=== PATIENT | male | born 1955 | race Caucasian/White ===

== ENCOUNTER 2022-09-30 08:02 | Outpatient (CLI) | payer MEDICARE, OTHER, SELFPAY ==
--- NOTE | ~2022-09-30 | CT_ITS ---
EXAMINATION: CT abdomen pelvis wo con DATE: 09/30/2022 08:30 INDICATION: Lower abdominal pain TECHNIQUE: Computed tomography (CT) of the abdomen and pelvis was performed without intravenous contr ast. The dose-length product (DLP) was 1465.83 mGy-cm. Automated exposure control and iterative recon struction technique were employed. COMPARISON: None FINDINGS: The lung bases are clear. The heart size is normal. The liver is diffusely low in attenuati on when compared with the spleen, consistent with hepatic steatosis. The spleen, pancreas, gallbladde r, and adrenal glands are normal. There is a 3.1 cm cyst of the right kidney. There is a 5 mm nonobst ructing stone of the left kidney lower pole. No stones are identified in the ureters or bladder. No h ydronephrosis or hydroureter. There is calcified atherosclerosis of the aorta and many of the other a rteries. No pathologically enlarged abdominal or pelvic lymph nodes are identified. There is no free intraperitoneal gas or evidence of bowel obstruction. The appendix is normal. There are fat-containin g bilateral inguinal and umbilical hernias. There is mild lumbar spondylosis. IMPRESSION: 1. Fat-containing bilateral inguinal and umbilical hernias. 2. Nonobstructing stone of the left kidney. 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
== END 2022-09-30 08:03 | disposition home or self-care (01) ==
LOC: CHSIMG 08:09
PROVIDERS: PCP Physician Assistant; Visit Provider Physician Assistant
DX: R10.31 Right lower quadrant pain (principal)
CPT/HCPCS: 74176

== ENCOUNTER 2023-01-24 08:44 | Outpatient (CLI) | payer MEDICARE, OTHER, SELFPAY ==
--- NOTE | 2023-01-24 10:00 | EST_ITS ---
Patient Info Name: Holland Rios Age: 67 years : 1955 Gender: Male Ht: 68 in Wt: 267 lbs BSA: 2.47 m2 HR: 96 bpm BP: 149 / 88 mmHg Heart Rhythm: Sinus Rhythm Technical Quality: Good Exam Date: 01/24/2023 10:13 AM Exam Location: [facility] Patient Status: Outpatient Admit Date: 01/24/2023 Staff Ordering Physician: Phyllis, Bin ALVAREZ Attending Provider: Nguyen MACHADO CEP Exercise Technologist: Dora Quintero CRT Exercise Physician: Kesha Machado CEP Exam Type: CA stress neeraj w NM Study Info Indications MENDEZ - A nuclear stress test was performed. History/Risk Factors Hypertension: Yes Diabetes Mellitus: Yes History/Risk Factors Diabetes, Hypertension. Summary 1. 1. Negative lexiscan stress test for ischemic ST changes by ECG criteria. 2. 2. Baseline hypertension. 3. 3. Nuclear scan to follow and will be reported separately. Please correlate with it. Protocol: LEXISCAN Stress ECG Details Stage: REST Duration (min): 1 min : 9 sec HR (bpm): 73 SBP (mmHg): 149 DBP (mmHg): 88 Stage: REST Duration (min): 6 min : 44 sec HR (bpm): 74 SBP (mmHg): 149 DBP (mmHg): 88 Stage: STAGE 1 Duration (min): 0 min : 20 sec HR (bpm): 80 SBP (mmHg): 149 DBP (mmHg): 88 Stage: RECOVERY Duration (min): 0 min : 39 sec HR (bpm): 90 SBP (mmHg): 149 DBP (mmHg): 88 Stage: RECOVERY Duration (min): 1 min : 39 sec HR (bpm): 86 SBP (mmHg): 149 DBP (mmHg): 88 Stage: RECOVERY Duration (min): 2 min : 39 sec HR (bpm): 83 SBP (mmHg): 189 DBP (mmHg): 86 Stage: RECOVERY Duration (min): 3 min : 39 sec HR (bpm): 80 SBP (mmHg): 174 DBP (mmHg): 81 Stage: RECOVERY Duration (min): 4 min : 39 sec HR (bpm): 80 SBP (mmHg): 167 DBP (mmHg): 83 Stage: RECOVERY Duration (min): 5 min : 39 sec HR (bpm): 82 SBP (mmHg): 167 DBP (mmHg): 83 Stage: RECOVERY Duration (min): 6 min : 4 sec HR (bpm): 80 SBP (mmHg): 162 DBP (mmHg): 84 Rest HR: 74 bpm Peak HR: 90 bpm Rest Sys BP: 149 mmHg Peak Sys BP: 189 mmHg Max Pred HR: 151 bpm % Max Pred HR: 60 % Target HR: 128 bpm Max RPP: 17,010 bpm*mmHg Termination Reason: Completed Protocol Cardiac Symptoms: Dyspnea Total Time: 0 min : 20 sec Rest Hernandez BP: 88 mmHg Peak Hernandez BP: 86 mmHg Total Dose: 0.4 mg Resting ECG Normal sinus rhythm. Stress ECG No ST changes. Arrhythmias Isolated PVCs. Report Signatures
--- NOTE | 2023-01-24 17:04 | WPDCARIOSTRE ---
Nuclear Stress Test INDICATIONS Indications: MENDEZ PROCEDURE Procedure Performed: Myocardial Perf Spect-Multi Procedure: Patient underwent a lexiscan stress test and was immediately injected with 33.9 mCi of cardiolyte. Multiple tomographic images were obtained. These are of good quality. There is evidence of large area, severe inferior perfusion defect with stress imaging. A separate resting images were obtained after patient was injected with 10.6 mCi of cardiolyte. Multiple tomographic images were obtained. These are of good quality. There is evidence of large area, mild-moderate inferior perfusion defect with rest imaging. CONCLUSION Conclusion: 1. Abnormal myocardial perfusion imaging demonstrating more severe perfusion defect with stress imaging suggesting inferior reversible ischemia. 2. Left ventriculogram demonstrates normal measured ejection fraction of 66% with no wall motion abnormalities. 3. TID 0.99 is normal.
== END 2023-01-24 08:45 | disposition home or self-care (01) ==
LOC: CHSIMG 08:47
PROVIDERS: PCP Physician Assistant; Visit Provider Physician Assistant
DX: R06.09 Other forms of dyspnea (principal); R94.39 Abnormal result of other cardiovascular function study
CPT/HCPCS: 78452; 93017; A9502; J2785

== ENCOUNTER 2023-02-07 08:59 | Outpatient (CLI) | payer MEDICARE, OTHER, SELFPAY ==
--- NOTE | 2023-02-07 09:18 | ECG_ITS ---
Measurements Intervals [place] Rate: 75 P: 41 NE: 179 QRS: 22 QRSD: 98 T: 18 QT: 430 QTc: 481 Interpretive Statements SINUS RHYTHM WITH OCCASIONAL VENTRICULAR PREMATURE COMPLEXES WITH FREQUENT SUPRAVENTRICULAR PREMATURE COMPLEXES IN A BIGEMINAL LOW QRS VOLTAGE IN PRECORDIAL LEADS [QRS DEFLECTION < 1.0 mV IN CHEST LEADS] NONSPECIFIC ST & T-WAVE ABNORMALITY ABNORMAL ECG NO PREVIOUS ECG AVAILABLE FOR COMPARISON Electronically Signed On 02-07-2023 12:00:36 CDT by Irwin Coleman M.D.
== END 2023-02-07 09:00 | disposition home or self-care (01) ==
LOC: CHSCARD 09:06
PROVIDERS: PCP Physician Assistant; Visit Provider Physician Assistant
DX: I20.8 Other forms of angina pectoris (principal); R94.31 Abnormal electrocardiogram [ECG] [EKG]
CPT/HCPCS: 93005

== ENCOUNTER 2023-04-18 10:50 | Outpatient (CLI) | payer MEDICARE, OTHER, SELFPAY ==
--- NOTE | 2023-04-18 10:55 | ECHO_ITS ---
Patient Info Name: Holland Rios Age: 67 years : 1955 Gender: Male Ht: 69 in Wt: 276 lbs BSA: 2.53 m2 HR: 70 bpm BP: 156 / 113 mmHg Heart Rhythm: Sinus Rhythm Technical Quality: Poor Exam Date: 04/18/2023 11:21 AM Exam Location: [facility] Patient Status: Outpatient Admit Date: 04/18/2023 Staff Ordering Physician: Dereje Beck DO Ship Boat Or Barge Mate: Vinicio Moreno RDCS Attending Provider: Dereje Beck DO Referring Physician: Kiran MCLEOD; Exam Type: CA echo dop color flow w con Study Info Indications - other forms of dyspnea Complete two-dimensional, color flow and Doppler transthoracic echocardiogram is performed with contrast to opacify the left ventricle and to improve the deliniation of the left ventricle endocardial borders. Reason for Poor Study: poor echocardiographic windows History/Risk Factors Hypertension: Yes Diabetes Mellitus: Yes Summary 1. Technically suboptimal study due to poor sonographic images. 2. Left ventricular chamber dimension is normal. 3. Left ventricular systolic function is normal, estimated at 60-65%. 4. There is mild concentric increased left ventricular wall thickness. 5. The left ventricular diastolic function is normal. 6. No pulmonary hypertension, estimated pulmonary arterial systolic pressure is 8 mmHg. Recommendations * Continue medical therapy for diabetes. Left Ventricle Tissue doppler is not performed. Technically suboptimal study due to poor sonographic images. Left ventricular chamber dimension is normal. Left ventricular systolic function is normal, estimated at 60-65%. There is mild concentric increased left ventricular wall thickness. The left ventricular diastolic function is normal. Right Ventricle Right ventricular systolic function is normal and with normal TAPSE 3.2 cm. Right ventricular chamber dimension is normal. Left Atria Left atrial chamber dimension is normal. Right Atria Right atrial chamber dimension is normal. Aortic Valve The aortic valve is trileaflet. There is no aortic valve stenosis. There is no aortic valve regurgitation. Pulmonic Valve There is no pulmonic regurgitation. Mitral Valve There is no mitral valve stenosis. There is no mitral valve regurgitation. Tricuspid Valve There is no tricuspid valve regurgitation. No pulmonary hypertension, estimated pulmonary arterial systolic pressure is 8 mmHg. Pericardium/Pleural There is no pericardial effusion. Inferior Vena Cava Normal inferior vena cava with >50% collapse upon inspiration consistent with normal right atrial pressure, 5 mmHg. Aorta The aortic root size at the sinus of Valsalva is normal. Left Ventricular Outflow Tract Name Value Normal LVOT 2D LVOT Diameter 2.08 cm LVOT Doppler LVOT Peak Velocity 98.64 cm/s LVOT Peak Gradient 4 mmHg LVOT Mean Gradient 2 mmHg LVOT VTI 23.42 cm LVOT VTI/AV VTI Ratio 0.74 LVOT Stroke Volume 79.50 ml Pulmonic Valve Name Value
== END 2023-04-18 10:51 | disposition home or self-care (01) ==
LOC: CHSIMG 10:52
PROVIDERS: PCP Physician Assistant; Visit Provider Internal Medicine Cardiovascular Disease
DX: R06.09 Other forms of dyspnea (principal)
CPT/HCPCS: C8929

== ENCOUNTER 2025-03-06 11:08 | Outpatient (CLI) | payer MEDICARE, SELFPAY ==
--- NOTE | ~2025-03-06 | XR_ITS ---
Clinical Indication: Chronic cough PA and lateral views of the chest: Comparison: None Findings: The lungs are clear, without evidence of focal consolidation or pleural effusion. Cardiome diastinal silhouette is within normal limits. Bones and soft tissues are unremarkable. Impression: Normal chest. Reviewed, dictated and finalized at location . Impression: Normal chest.
--- OUTSIDE RECORDS SUMMARY | 2025-03-06 11:45 | XMS_ITS | Clinical Summary ---
Author Organization [facility] Address [address] [place] [address] Phone Care Team Providers Care Relocation Specialist Name Role Phone Bin Ferguson Primary Care Provider [phone] Allergies No known active allergies Medications ATENOLOL PO Take 50 mg by mouth daily. Active AMLODIPINE BESYLATE PO Take by mouth. Act aruna METFORMIN HCL PO Take 500 mg by mouth 2 times daily. Active Esomeprazole Magnesium (NEXIUM PO) Take by mouth daily as needed. Active albuterol 108 (90 Base) MCG/ACT Aerosol Solution take 2 Puffs by inhalation every 4 hours as needed for Cough. 1 Inhaler 8 Active guaiFENesin (MUCINEX) 600 MG TABLET SR 12 HR Take 1 Tab by mouth 2 times daily. 180 Tab 8 Active guaiFENesin-cod eine (TUSSI-ORGANIDI N NR) 100-10 MG/5ML Syrup Take 5 mL by mouth every 4 hours as needed for Cough. 120 mL 8 Active Family History Medical History Relation Name Comments Cancer Father lung Cancer Mother breast Kidney Disease Mother dialysis Hypertension Paternal Grandfather Relation Name Status Comments Father Mother Paternal Grandfather Social History Tobacco Use Types Packs/Day Years Used Date Smoking Tobacco: Never Smokeless Tobacco: Never Alcohol Use Standard Drinks/Week Comments Yes 11 (1 standard drink = 0.6 oz pu re alcohol) 1/5 vodka a day Sex and Gender Information Value Date Recorded Sex Assigned at Not on file Legal Sex Male 11:59 PM CDT Gender Identity Not on file Sexual Orientation Not on file Last Filed Vital Signs Vital Sign Reading Time Taken Comments Blood Pressure 177/97 07/07/2018 5:49 AM CDT Pulse 89 07/07/2018 9:16 AM CDT Temperature 37.3 C (99.1 F) 07/07/2018 5:49 AM CDT Respiratory Rate 20 07/07/2018 8:04 AM CDT Oxygen Saturation 99% 07/07/2018 9:16 AM CDT Inhaled Oxygen Concentration - - Weight 127.5 kg (281 lb) 07/07/2018 5:49 AM CDT Height 172.7 cm (5' 8 ) 07/07/2018 5:49 AM CDT Body Mass Index 42.73 07/07/2018 5:49 AM CDT Plan of Treatment Health Maintenance Due Date Last Done Comments Hepatitis C Virus (HCV) Screening 1955 TdaP Immunization 1955 Cologuard 2003 Immunochemical Fecal Occult Blood 2003 Pneumococcal Immunization (5 0+ years) (1 of 1 - PCV) 2003 Zoster Immunization (1 of 2) 2003 Colonoscopy 06/27/2019 06/27/2018 Colorectal Cancer Screening 06/27/2019 Influenza Immunization (#1) 2024 SARS-COV-2 Immunization ( season) 2024 09/17/2021, 01/27/2021, 12/30/2020 Respiratory Syncytial Virus (RSV) Immunization (Adult) (1 - 1-dose 75+ series) 2028 06/27/2018 Hepatitis B Immunization Aged Out No longer eligible based on patient's age to complete this topic Meningococcal Immunization (ACWY) Aged Out No longer eligible b ased on patient's age to complete this topic Rotavirus Immunization Aged Out No lo nger eligible based on patient's age to complete this topic Insurance MEDICARE [employer]IC Care Teams Relocation Specialist Relationship Specialty Start Date End Date Bin Ferguson [address] [place] [address] PCP - General Physician International Logistics Manager 12/27/17
== END 2025-03-06 11:09 | disposition home or self-care (01) ==
LOC: CHSIMG 11:16
PROVIDERS: PCP Physician Assistant; Visit Provider Physician Assistant
DX: J20.8 Acute bronchitis due to other specified organisms (principal)
CPT/HCPCS: 71046